=== PATIENT | female | born 1970 | race Caucasian/White ===

== ENCOUNTER 2018-06-21 10:12 | Day surgery (SDC) | payer OTHER ==
[2018-06-21] MEDS: TOBRAMYCIN/DEXAMETH 3.5 GM OPH OINT RIGHT EYE
[~2018-06-21 10:12] MED LIST: BALANCED SALT SOLN 15 ML OPH IRRIG; LIDOCAINE 2% (SDV) 5 ML INJ; PROPOFOL 200 MG INJ
[2018-06-21] MEDS ORDERED: MITOMYCIN 5 MG INJ OP (11:00)
[2018-06-21] MEDS: LIDOCAINE 2%/EPI (MDV) 20ML INJ INJ (12:15)
[2018-06-21] MEDS ORDERED: LIDOCAINE 2%/EPI MPF (SDV) 20 ML VIAL (12:22)
[2018-06-21] MEDS ORDERED: MIDAZOLAM 1 MG/ML 2 ML INJ (12:59)
[2018-06-21] MEDS ORDERED: LABETALOL HCL 20MG INJ (13:04)
[2018-06-21] MEDS ORDERED: TOBRAMYCIN/DEXAMETH 3.5 GM OPH OINT ×2 (13:07→13:08)
[2018-06-21] MEDS ORDERED: OXYCODONE/ACETAMINOPHEN (5/325) TAB PO (13:30)
[2018-06-21] MEDS ORDERED: hydrALAzine 20 MG INJ IV (13:30)
[2018-06-21] MEDS ORDERED: ALBUTEROL 0.083% (NEB) 2.5 MG/3 ML AMP HHN (13:30)
[2018-06-21] MEDS ORDERED: DIPHENHYDRAMINE 50 MG INJ IV (13:30)
[2018-06-21] MEDS ORDERED: FENTAnyl 50 MCG/ML VIAL IV (13:30)
[2018-06-21] MEDS ORDERED: ACETAMINOPHEN 500 MG TAB PO (13:30)
[2018-06-21] MEDS ORDERED: ACETAMINOPHEN 325 MG TAB PO (13:30)
[2018-06-21] MEDS ORDERED: ONDANSETRON 4 MG INJ IV (13:30)
[2018-06-21] MEDS: LABETALOL HCL 20MG INJ IV (14:02)
== END 2018-06-21 16:05 | disposition home or self-care (01) ==
LOC: SDS 10:12
DX: H11.001 Unspecified pterygium of right eye (principal); I10 Essential (primary) hypertension; E11.9 Type 2 diabetes mellitus without complications
CPT/HCPCS: 65426; 82962; 84703